=== PATIENT | female | born 1935 | race Caucasian/White ===

== ENCOUNTER → 2017-09-11 17:49 | Outpatient (CLI) | payer MEDICARE, OTHER ==
[2010-06-01 08:24] VITALS: BMI 24.2
== END | disposition home or self-care (01) ==
LOC: D.LABREF 17:49
DX: R31.9 Hematuria, unspecified (principal); N39.0 Urinary tract infection, site not specified

== ENCOUNTER → 2018-04-17 15:42 | Outpatient (CLI) | payer MEDICARE, OTHER ==
[2010-06-01 08:24] VITALS: BMI 24.2
== END | disposition home or self-care (01) ==
LOC: D.CT 15:42
DX: G50.0 Trigeminal neuralgia (principal)